=== PATIENT | male | born 1950 | race Caucasian/White ===

== ENCOUNTER 2023-08-28 07:38 | Outpatient (CLI) | payer MEDICARE, OTHER ==
[2023-08-28 08:22] LABS: BASOPHILS # (AUTO) 0.1 K/uL (0.0-0.2); BASOPHILS % (AUTO) 1.3 % (0.0-2.0); EOSINOPHILS # (AUTO) 0.1 K/uL (0.0-0.7); EOSINOPHILS % (AUTO) 0.7 % (0.0-6.0); HEMATOCRIT 48 % (39-51); HEMOGLOBIN 16.3 g/dL (13.5-17.5); LYMPHOCYTES # (AUTO) 1.2 K/uL (0.8-4.8); LYMPHOCYTES % (AUTO) 12.3 % (20.0-44.0); MEAN CORPUSCULAR HEMOGLOBIN 30 PG (26.0-33.0); MEAN CORPUSCULAR HGB CONC 34 g/dl (31.0-36.0); MEAN CORPUSCULAR VOLUME 88 fL (80-96); MONOCYTES # (AUTO) 0.6 K/uL (0.1-1.30); MONOCYTES % (AUTO) 6.1 % (2.0-12.0); NEUTROPHILS # (AUTO) 7.8 K/uL (1.8-8.9); NEUTROPHILS % (AUTO) 79.6 % (43.0-81.0); PLATELET COUNT (AUTO) 258 K/uL (150-450); RED BLOOD CELL COUNT(AUTO) 5.45 MIL/uL (4.5-6.0); RED CELL DISTRIBUTION WIDTH 14.2 % (11.5-15.0); WHITE BLOOD COUNT (AUTO) 9.8 K/uL (4.3-11.0)
[2023-08-28 08:37] LABS: ALBUMIN 3.7 g/dL (3.4-5.0); CALCIUM, SERUM 9.5 mg/dL (8.5-10.1); CREATININE 1.2 mg/dL (0.6-1.3); POTASSIUM 4.1 mmol/L (3.5-5.1)
[2023-08-28 08:44] LABS: INR 1.01 (0.91-1.10); PARTIAL THROMBOPLASTIN TIME 27.5 SEC (24.3-34.3); PROTHROMBIN TIME 10.7 SECS (9.2-11.1)
[2023-08-28 08:58] LABS: URIC ACID 3.7 mg/dL (2.6-7.2)
== END 2023-08-28 23:59 | disposition home or self-care (01) ==
LOC: RAD 07:38
PROVIDERS: ATTEND Internal Medicine Interventional Cardiology
DX: Z01.810 Encounter for preprocedural cardiovascular examination (principal); E78.5 Hyperlipidemia, unspecified; M10.9 Gout, unspecified; R06.00 Dyspnea, unspecified; D68.9 Coagulation defect, unspecified; I10 Essential (primary) hypertension; I70.0 Atherosclerosis of aorta; Z95.810 Presence of automatic (implantable) cardiac defibrillator
CPT/HCPCS: 36415; 71046; 80053-TC; 80061-TC; 84550-TC; 85025-TC; 85730-TC

== ENCOUNTER 2023-09-05 07:37 | Inpatient (IN) | payer MEDICARE, OTHER ==
[~2023-09-05] VITALS: Ht 198.1 cm; Wt 70.8 kg
[2023-09-05] MEDS ORDERED: dexaMETHasone SOD PHOSPHATE 2 ML ONE (07:49)
[2023-09-05] MEDS ORDERED: VANCOMYCIN 1 GM VIAL ONE (07:49)
[2023-09-05] MEDS ORDERED: LIDOCAINE 2%-EPI 1:100,000 30 ML VIAL ONE (07:49)
[2023-09-05] MEDS ORDERED: ANESTHESIA TRAY IN PYXIS 1 EA TRAY MC ONE (07:50)
[2023-09-05] MEDS ORDERED: FENTANYL PF 100MCG/2ML AMPUL ONE ×3 (09:01→12:08)
[2023-09-05] MEDS ORDERED: ROCURONIUM BROMIDE 50 MG/5 ML ONE (09:01)
[2023-09-05] MEDS ORDERED: FAMOTIDINE/PF INJ 20 MG/2 ML VIAL IV ONE (09:01)
[2023-09-05] MEDS ORDERED: TRANEXAMIC ACID 1,000 MG/10 ML VIAL ONE (10:21)
[2023-09-05] MEDS ORDERED: LABETALOL HCL IV 100MG VIAL ONE (12:58)
[2023-09-05] MEDS ORDERED: ONDANSETRON HCL/PF 4 MG/2 ML VIAL IV PRN (14:00)
[2023-09-05] MEDS ORDERED: ACETAMINOPHEN 325 MG TABLET PO PRN (14:30)
[2023-09-05] MEDS ORDERED: JANUMET XR PO (15:01)
[2023-09-05] MEDS ORDERED: ASPI-1420 PO (15:01)
[2023-09-05] MEDS ORDERED: TADA5TAB2 PO (15:01)
[2023-09-05] MEDS ORDERED: EZET10TA16 PO (15:01)
[2023-09-05] MEDS ORDERED: ATOR40TA PO (15:01)
[2023-09-05] MEDS ORDERED: EMPA10TA PO (15:01)
[2023-09-05] MEDS ORDERED: CARV12.5 PO (15:01)
[2023-09-05] MEDS ORDERED: AMLO-212 PO (15:01)
[2023-09-05] MEDS ORDERED: MINO10TA PO (15:01)
[2023-09-05] MEDS: HYDROMORPHONE 1 MG/1 ML DISP.SYRIN IV PRN (15:16)
[2023-09-05] MEDS ORDERED: DEXTROSE 50%-WATER 50 ML DISP.SYRIN IV PRN (16:00)
[2023-09-05] MEDS: BLOOD SUGAR DIAGNOSTIC 1 EACH STRIP IN SCH (17:15)
[2023-09-05] MEDS: METFORMIN 500 MG TABLET PO SCH (17:17)
[2023-09-05] MEDS: INSULIN REGULAR, HUMAN 100 UNIT/ML 3 ML VIAL SQ PRN (17:17)
[2023-09-05] MEDS: CARVEDILOL 12.5 MG TABLET PO SCH (17:17)
[2023-09-05] MEDS: IV NS 0.9% 1,000 ML IV PRN (17:26)
[2023-09-05 20:00] VITALS: BP 159/77; TEMP 97.5; O2SAT 95
[2023-09-05] MEDS: VANCOMYCIN 1 GM in IV D5W 250ml IV SCH (22:24)
[2023-09-05] MEDS: ATORVASTATIN 40 MG TABLET PO SCH (22:24)
[2023-09-06 07:00] VITALS: BP 161/86; TEMP 98.4; O2SAT 94
[2023-09-06] MEDS: ASPIRIN EC 81 MG TABLET.DR PO SCH (09:00)
[2023-09-06] MEDS: EZETIMIBE 10 MG TABLET PO SCH (09:00)
[2023-09-06 09:01] VITALS: BP 161/86
[2023-09-06] MEDS: LINAGLIPTIN 5 MG TABLET PO SCH (09:01)
[2023-09-06] MEDS: AMLODIPINE BESYLATE 5 MG TABLET PO SCH (09:01)
== END 2023-09-06 13:37 | disposition home or self-care (01) | DRG 517 ==
LOC: DS 07:37 → MED 07:38
PROC: 0NSV04Z Reposition Left Mandible with Internal Fixation Device, Open Approach (ICD-10-PCS; principal; 2023-09-05)
PROC: 0NSR04Z Reposition Maxilla with Internal Fixation Device, Open Approach (ICD-10-PCS; 2023-09-05)
PROC: 0NST04Z Reposition Right Mandible with Internal Fixation Device, Open Approach (ICD-10-PCS; 2023-09-05)
PROC: 0NUV07Z Supplement Left Mandible with Autologous Tissue Substitute, Open Approach (ICD-10-PCS; 2023-09-05)
PROC: 0NUR07Z Supplement Maxilla with Autologous Tissue Substitute, Open Approach (ICD-10-PCS; 2023-09-05)
PROC: 0NUT07Z Supplement Right Mandible with Autologous Tissue Substitute, Open Approach (ICD-10-PCS; 2023-09-05)
PROC: 0NBV0ZX Excision of Left Mandible, Open Approach, Diagnostic (ICD-10-PCS; 2023-09-05)
PROC: 0NBR0ZX Excision of Maxilla, Open Approach, Diagnostic (ICD-10-PCS; 2023-09-05)
PROC: 0NBT0ZX Excision of Right Mandible, Open Approach, Diagnostic (ICD-10-PCS; 2023-09-05)
PROC: 0NPW0JZ Removal of Synthetic Substitute from Facial Bone, Open Approach (ICD-10-PCS; 2023-09-05)
DX: T84.7XXA Infection and inflammatory reaction due to other internal orthopedic prosthetic devices, implants and grafts, initial encounter (principal); Y83.8 Other surgical procedures as the cause of abnormal reaction of the patient, or of later complication, without mention of misadventure at the time of the procedure; I25.10 Atherosclerotic heart disease of native coronary artery without angina pectoris; E11.9 Type 2 diabetes mellitus without complications; I10 Essential (primary) hypertension; M19.90 Unspecified osteoarthritis, unspecified site; N40.0 Benign prostatic hyperplasia without lower urinary tract symptoms; D16.5 Benign neoplasm of lower jaw bone; J32.9 Chronic sinusitis, unspecified; M27.2 Inflammatory conditions of jaws; Z95.810 Presence of automatic (implantable) cardiac defibrillator; M10.9 Gout, unspecified; Y79.8 Miscellaneous orthopedic devices associated with adverse incidents, not elsewhere classified; Y92.009 Unspecified place in unspecified non-institutional (private) residence as the place of occurrence of the external cause
CPT/HCPCS: 82962-TC; A4223; C1713; G0378; J1100; J1170; J1815; J2405; J2704; J3010; J3370; J3490; J7030; J7060

== ENCOUNTER 2024-03-06 07:18 | Inpatient (IN) | payer MEDICARE, OTHER ==
[~2024-03-06] VITALS: Ht 167.6 cm; Wt 65.8 kg
[~2024-03-06 07:18] MED LIST: AMLO-212 PO; ASPI-1420 PO; ATOR40TA PO; CARV12.5 PO; EMPA10TA PO; EZET10TA16 PO; JANUMET XR PO; MINO10TA PO; TADA5TAB2 PO
[2024-03-06] MEDS ORDERED: FENTANYL PF 250MCG/5ML AMPUL ONE (07:34)
[2024-03-06] MEDS ORDERED: ROCURONIUM BROMIDE 50 MG/5 ML ONE (07:35)
[2024-03-06] MEDS ORDERED: LIDOCAINE 2%-EPI 1:100,000 30 ML VIAL ONE (09:36)
[2024-03-06] MEDS ORDERED: OXYMETAZOLINE HCL NASAL SPRAY 30 ML BOTTLE NS ONE (09:37)
[2024-03-06] MEDS ORDERED: dexaMETHasone SOD PHOSPHATE 1 ML ONE (09:37)
[2024-03-06] MEDS ORDERED: VANCOMYCIN 1 GM VIAL ONE (09:37)
[2024-03-06 09:53] LABS: INR 1.03 (0.91-1.10); PARTIAL THROMBOPLASTIN TIME 25.3 SEC (24.3-34.3); PROTHROMBIN TIME 10.9 SECS (9.2-11.1)
[2024-03-06] MEDS ORDERED: LABETALOL HCL IV 100MG VIAL ONE (11:01)
[2024-03-06] MEDS ORDERED: ACETAMINOPHEN 325 MG TABLET PO PRN (13:30)
[2024-03-06] MEDS ORDERED: ONDANSETRON HCL/PF 4 MG/2 ML VIAL IV PRN (13:30)
[2024-03-06] MEDS ORDERED: HYDROMORPHONE 1 MG/1 ML DISP.SYRIN IV PRN (13:30)
[2024-03-06] MEDS: IV NS 0.9% 1,000 ML IV PRN (13:43)
[2024-03-06] MEDS ORDERED: TAMS-12 PO (13:45)
[2024-03-06] MEDS ORDERED: AMIO200T5 PO (13:45)
[2024-03-06] MEDS ORDERED: ALLO300T2 PO (13:45)
[2024-03-06] MEDS ORDERED: TURMERIC/CURCUMIN PO (13:45)
[2024-03-06] MEDS ORDERED: FINA5TAB11 PO (13:45)
[2024-03-06] MEDS: ASPIRIN EC 81 MG TABLET.DR PO SCH (14:29)
[2024-03-06] MEDS: FINASTERIDE (5 MG) 5 MG TABLET PO SCH (14:29)
[2024-03-06] MEDS: AMIODARONE HCL 200 MG TABLET PO SCH (14:29)
[2024-03-06] MEDS: ALLOPURINOL 100 MG TABLET PO SCH (14:29)
[2024-03-06] MEDS: AMLODIPINE BESYLATE 5 MG TABLET PO SCH (14:29)
[2024-03-06 16:00] VITALS: BP 146/69; TEMP 98.1; O2SAT 96
[2024-03-06] MEDS: CARVEDILOL 12.5 MG TABLET PO SCH (16:06)
[2024-03-06 20:00] VITALS: BP 119/65; TEMP 99.7; O2SAT 96
[2024-03-06 20:35] VITALS: BP 119/65; TEMP 99.7; O2SAT 96
[2024-03-06] MEDS: VANCOMYCIN 1 GM in IV D5W 250ml IV SCH (21:23)
[2024-03-06] MEDS: ATORVASTATIN 40 MG TABLET PO SCH (21:41)
[2024-03-06] MEDS: TAMSULOSIN 0.4 MG CAP.SR.24H PO SCH (21:41)
[2024-03-07 08:00] VITALS: BP 146/70; TEMP 98.2; O2SAT 96
[2024-03-07] MEDS: EZETIMIBE 10 MG TABLET PO SCH (09:27)
[2024-03-07 09:29] VITALS: BP 146/70
== END 2024-03-07 10:30 | disposition home or self-care (01) | DRG 497 ==
LOC: DS 07:18 → MED 13:05
PROVIDERS: ADMIT Nurse Practitioner Acute Care; ATTEND Nurse Practitioner Acute Care
PROC: 0NBV0ZZ Excision of Left Mandible, Open Approach (ICD-10-PCS; principal; 2024-03-07)
PROC: 0NPW04Z Removal of Internal Fixation Device from Facial Bone, Open Approach (ICD-10-PCS; 2024-03-07)
PROC: 0NBT0ZZ Excision of Right Mandible, Open Approach (ICD-10-PCS; 2024-03-07)
PROC: 0NUV07Z Supplement Left Mandible with Autologous Tissue Substitute, Open Approach (ICD-10-PCS; 2024-03-07)
PROC: 0NUT07Z Supplement Right Mandible with Autologous Tissue Substitute, Open Approach (ICD-10-PCS; 2024-03-07)
PROC: 0WB30ZX Excision of Oral Cavity and Throat, Open Approach, Diagnostic (ICD-10-PCS; 2024-03-07)
PROC: 0NBR0ZX Excision of Maxilla, Open Approach, Diagnostic (ICD-10-PCS; 2024-03-07)
DX: T84.69XA Infection and inflammatory reaction due to internal fixation device of other site, initial encounter (principal); Y83.8 Other surgical procedures as the cause of abnormal reaction of the patient, or of later complication, without mention of misadventure at the time of the procedure; Y92.009 Unspecified place in unspecified non-institutional (private) residence as the place of occurrence of the external cause; I25.10 Atherosclerotic heart disease of native coronary artery without angina pectoris; I10 Essential (primary) hypertension; M27.2 Inflammatory conditions of jaws; M10.9 Gout, unspecified; E11.9 Type 2 diabetes mellitus without complications; N40.0 Benign prostatic hyperplasia without lower urinary tract symptoms; Z87.891 Personal history of nicotine dependence; M19.90 Unspecified osteoarthritis, unspecified site; Z79.2 Long term (current) use of antibiotics; Z79.899 Other long term (current) drug therapy; I25.2 Old myocardial infarction; K12.30 Oral mucositis (ulcerative), unspecified; K13.70 Unspecified lesions of oral mucosa
CPT/HCPCS: 36415; 82962-TC; 85730-TC; 88300-TC; 88305-TC; 88311-TC; A4223; A4338; C1713; G0378; J0461; J0690; J1100; J1170; J2704; J3010; J3370; J3490; J7030; J7060